=== PATIENT | male | born 1960 ===

== ENCOUNTER 2017-12-14 09:12 | Day surgery (SDC) | payer OTHER ==
[~2017-12-14] VITALS: Ht 193 cm; Wt 132.9 kg
[2017-12-14] VITALS (9 sets, daily range): BP systolic 122–147; BP diastolic 82–104
[~2017-12-14 09:12] MED LIST: ceFAZolin inj. 3,000 MG in normal saline 100ml IV soln 100 ML IV ONE; famotidine 20mg tablet PO ONE; ringers solution, lacted 1,000 ML IV SCH
[2017-12-14] MEDS ORDERED: ROPIVAcaine 0.5% (5mg/ml) 30ml vial ONE (11:44)
[2017-12-14] MEDS ORDERED: sevoflurane 250ml liquid IH ONE (11:46)
[2017-12-14] MEDS ORDERED: fentaNYL/PF 50MCG/1 ML 2ML syringe ONE (11:54)
[2017-12-14] MEDS ORDERED: propofol inj 20 ML IV ONE (11:54)
[2017-12-14] MEDS ORDERED: LIDOcaine 2% (20mg/ml) 5ml vial ONE (11:54)
[2017-12-14] MEDS ORDERED: rocuronium 10mg/ml inj IV ONE (12:09)
[2017-12-14] MEDS ORDERED: ondansetron/PF 4mg/2ml inj ONE (12:11)
[2017-12-14] MEDS ORDERED: ringers solution, lacted 1,000 ML IV SCH (12:26)
[2017-12-14] MEDS ORDERED: ceFAZolin 1000mg inj ONE (12:28)
[2017-12-14] MEDS ORDERED: ASPI-257 (12:28)
[2017-12-14] MEDS ORDERED: HYDR12.5 PO (12:28)
[2017-12-14] MEDS ORDERED: IBUP-1984 PO (12:29)
[2017-12-14] MEDS ORDERED: CALC-642 (12:29)
[2017-12-14] MEDS ORDERED: labetalol 20mg/4ml (5mg/ml) syringe IV PRN (12:30)
[2017-12-14] MEDS ORDERED: morphine 4 MG/ML inj SYRINge IV PRN ×2 (12:30)
[2017-12-14] MEDS ORDERED: ondansetron/PF 4mg/2ml inj IV PRN (12:30)
[2017-12-14] MEDS ORDERED: hydrALAZINE 20mg/ml inj. IV PRN (12:30)
[2017-12-14] MEDS ORDERED: ACET-2119 PO (12:30)
[2017-12-14] MEDS ORDERED: meperidine/PF 25mg/ml syringe IV PRN ×2 (12:30)
== END 2017-12-14 15:20 ==
LOC: PAS 09:12 → EEVIPCON 09:12 → PAS 15:20
PROVIDERS: ATTEND Orthopaedic Surgery
DX: M19.072 Primary osteoarthritis, left ankle and foot (principal); M25.775 Osteophyte, left foot; I10 Essential (primary) hypertension; G89.18 Other acute postprocedural pain; K21.9 Gastro-esophageal reflux disease without esophagitis; E78.5 Hyperlipidemia, unspecified; D47.3 Essential (hemorrhagic) thrombocythemia; Z79.1 Long term (current) use of non-steroidal anti-inflammatories (NSAID); Z79.891 Long term (current) use of opiate analgesic; Z79.82 Long term (current) use of aspirin; Z79.899 Other long term (current) drug therapy
CPT/HCPCS: 28750; 64450; 93005; A6449; C1713; C1750; J0690; J2001; J2175; J2405; J2704; J2795; J3010; J7030; J7120; L4360; A7000